=== PATIENT | male | born 1980 | race Caucasian/White ===

== ENCOUNTER → 2020-07-14 | Outpatient (CLI) | payer OTHER ==
[2020-07-14 10:25] LABS: Urine Bacteria NONE SEEN /hpf (None Seen); Urine Blood Negative /uL (Negative); Urine Mucus FEW (None Seen); Urine Specific Gravity 1.019 (1.001-1.035); Urine WBC 1 /hpf (0 - 3)
[2020-07-14 10:39] LABS: Albumin 4.1 g/dL (3.4-5.0); Calcium 9.1 mg/dL (8.5-10.1); Potassium 4.2 mmol/L (3.5-5.1)
[2020-07-14 11:18] LABS: BUN/Creatinine Ratio 20.7; Bilirubin, Total 0.8 mg/dL (0.2-1.0); CRP High Sensitivity 0.11 mg/dL (< 0.3)
[2020-07-14 11:21] LABS: Basophils # (auto) 0 10 ^3/uL (0-0.2); Basophils % (auto) 0.7 % (0.0-2.0); Eosinophils # (auto) 0.2 10 ^3/uL (0-0.8); Eosinophils % (auto) 2.8 % (0.0-7.0); Hematocrit 45.7 % (41.0-53.0); Lymphocytes # (auto) 2.1 10 ^3/uL (0.4-5.4); Lymphocytes % (auto) 33.5 % (10.0-50.0); Mean Corpuscular Hemoglobin 30.4 pg (28.0-32.0); Mean Corpuscular Hgb Conc. 34.9 g/dL (32.0-36.0); Monocytes # (auto) 0.4 10 ^3/uL (0-1.3); Neutrophils # (auto) 3.6 10 ^3/uL (1.6-8.6); Platelet Count (auto) 254 10^3/uL (140-450); Red Blood Cells 5.25 10^6/uL (4.5-5.90); Red Cell Distribution Width 12.7 % (11.8-14.3); White Blood Cell 6.4 10^3/uL (4.4-10.8)
== END | disposition home or self-care (01) ==
LOC: LAB 09:48
PROVIDERS: ATTEND Internal Medicine
DX: M25.511 Pain in right shoulder (principal); L50.9 Urticaria, unspecified; K27.9 Peptic ulcer, site unspecified, unspecified as acute or chronic, without hemorrhage or perforation
CPT/HCPCS: 36415; 80053; 80061; 81001; 83036; 85025; 85652; 86141

== ENCOUNTER 2021-07-27 16:16 | Inpatient (IN) | payer OTHER ==
[~2021-07-27] VITALS: Ht 177.8 cm; Wt 93.0 kg
[2021-07-27 20:30] LABS: Basophils # (auto) 0 10 ^3/uL (0-0.2); Basophils % (auto) 0.1 % (0.0-2.0); Eosinophils # (auto) 0 10 ^3/uL (0-0.8); Eosinophils % (auto) 0.3 % (0.0-7.0); Hematocrit 40.6 % (41.0-53.0); Hemoglobin 13.4 g/dL (13.5-17.5); Lymphocytes # (auto) 1.9 10 ^3/uL (0.4-5.4); Lymphocytes % (auto) 15.5 % (10.0-50.0); Mean Corpuscular Hemoglobin 28.4 pg (28.0-32.0); Monocytes # (auto) 1.3 10 ^3/uL (0-1.3); Monocytes % (auto) 10.1 % (0.0-12.0); Neutrophils # (auto) 9.2 10 ^3/uL (1.6-8.6); Red Blood Cells 4.72 10^6/uL (4.5-5.90); White Blood Cell 12.5 10^3/uL (4.4-10.8)
[2021-07-27 20:44] LABS: Albumin 2.3 g/dL (3.4-5.0); Magnesium 3.1 mg/dL (1.6-2.6); Potassium 3.7 mmol/L (3.5-5.1)
[2021-07-27 20:47] LABS: Urine Bacteria NONE SEEN /hpf (None Seen); Urine Blood TRACE /uL (Negative); Urine Mucus FEW (None Seen); Urine Specific Gravity 1.024 (1.001-1.035); Urine WBC 1 /hpf (0 - 3)
[2021-07-27 20:52] LABS: BUN/Creatinine Ratio 21.9; Bilirubin, Total 0.5 mg/dL (0.2-1.0); CRP High Sensitivity 9.6 mg/dL (< 0.3); Total Protein 7.2 g/dL (6.4-8.2)
[2021-07-27 20:58] LABS: INR 1.12 (0.9-1.15)
[2021-07-27] MEDS ORDERED: AZITHROMYCIN 500MG/ 250ML 250 ML IV ONE (21:15)
[2021-07-27] MEDS ORDERED: DexAMETHasone SOD PHOS 10MG/1ML VIAL INJ IV ONE (21:15)
[2021-07-27] MEDS ORDERED: MORPHINE SULFATE INJECTION 2 MG/ML SYRG IV PRN (21:30)
[2021-07-27] MEDS ORDERED: REMDESIVIR PER PHARMACY 0 ML IV SCH (21:30)
[2021-07-27] MEDS ORDERED: ACETAMINOPHEN 500 MG TAB PO PRN (21:30)
[2021-07-27] MEDS ORDERED: NITROGLYCERIN 0.4 MG SL TAB SL PRN (21:30)
[2021-07-27] MEDS ORDERED: ONDANSETRON HCL 4 MG/2 ML VIAL IV PRN (21:30)
[2021-07-27] MEDS ORDERED: TEMAZEPAM 15 MG CAP PO PRN (21:30)
[2021-07-27] MEDS ORDERED: cefTRIAXone 1GM/50ML D5W 50 ML IV ONE (21:30)
[2021-07-27] MEDS: ASCORBIC ACID 500 MG TAB PO SCH (21:50)
[2021-07-27] MEDS: ENOXAPARIN SOD 40 MG/0.4 ML SYRINGE SC SCH (21:50)
[2021-07-27] MEDS ORDERED: REMDESIVIR 200 MG in NS 210ml LOADING DOSE ADULT IV ONE (22:30)
[2021-07-27 23:30] VITALS: BP 99/61
[2021-07-28 07:18] LABS: Basophils # (auto) 0 10 ^3/uL (0-0.2); Basophils % (auto) 0.1 % (0.0-2.0); Eosinophils # (auto) 0 10 ^3/uL (0-0.8); Hematocrit 42.5 % (41.0-53.0); Hemoglobin 14.4 g/dL (13.5-17.5); Lymphocytes # (auto) 1.2 10 ^3/uL (0.4-5.4); Lymphocytes % (auto) 11.6 % (10.0-50.0); Mean Corpuscular Hemoglobin 29.5 pg (28.0-32.0); Mean Corpuscular Volume 86.7 fL (80.0-100.0); Monocytes # (auto) 0.5 10 ^3/uL (0-1.3); Monocytes % (auto) 5.2 % (0.0-12.0); Neutrophils # (auto) 8.5 10 ^3/uL (1.6-8.6); Neutrophils % (auto) 83.1 % (37.0-80.0); Nucleated Red Blood Cells % 0.1 %; White Blood Cell 10.2 10^3/uL (4.4-10.8)
[2021-07-28 07:38] LABS: Potassium 4.5 mmol/L (3.5-5.1)
[2021-07-28 07:51] LABS: Albumin 2.3 g/dL (3.4-5.0); Bilirubin, Total 0.5 mg/dL (0.2-1.0); Calcium 7.7 mg/dL (8.5-10.1); Total Protein 6.8 g/dL (6.4-8.2)
[2021-07-28] MEDS: cefTRIAXone 1GM/50ML D5W 50 ML IV SCH (10:00)
[2021-07-28] MEDS ORDERED: ASCORBIC ACID 1,000 MG TAB PO SCH (10:00)
[2021-07-28] MEDS ORDERED: ZINC SULFATE 220mg CAP or TAB PO SCH (10:00)
[2021-07-28] MEDS: AZITHROMYCIN 500MG/ 250ML 250 ML IV SCH (11:02)
[2021-07-28] MEDS: PANTOPRAZOLE 40 MG TAB PO SCH (11:02)
[2021-07-28] MEDS: ZINC SULFATE 220mg CAP or TAB PO SCH (11:02)
[2021-07-28] MEDS: DexAMETHasone SOD PHOS 10MG/1ML VIAL INJ IV SCH (11:02)
[2021-07-28] MEDS: ENOXAPARIN SOD 40 MG/0.4 ML SYRINGE SC SCH ×2 (11:03→21:41)
[2021-07-28] MEDS: CHOLECALCIFEROL (VITD3) 2,000 UNIT CAP/TAB PO SCH (11:03)
[2021-07-28] MEDS: ASCORBIC ACID 500 MG TAB PO SCH ×2 (11:03→21:41)
[2021-07-28 13:00] VITALS: BP 116/71
[2021-07-28 13:07] LABS: Urine Bacteria NONE SEEN /hpf (None Seen); Urine Blood Negative /uL (Negative); Urine Mucus FEW (None Seen); Urine Specific Gravity 1.028 (1.001-1.035); Urine WBC 2 /hpf (0 - 3)
[2021-07-28] MEDS: REMDESIVIR 100mg 100 MG in SODIUM CHL 0.9% 230 ML IV SCH (16:17)
[2021-07-28 17:00] VITALS: BP 109/57
[2021-07-28 22:00] VITALS: BP 125/89
[2021-07-28] MEDS: ALBUTEROL SULF HFA 90MCG INH 200DOSE IN PRN (22:28)
[2021-07-29] VITALS (7 sets, daily range): BP systolic 97–107; BP diastolic 49–64
[2021-07-29 08:07] LABS: Potassium 4.1 mmol/L (3.5-5.1)
[2021-07-29 08:14] LABS: Albumin 2.3 g/dL (3.4-5.0); BUN/Creatinine Ratio 31.3; Bilirubin, Total 0.4 mg/dL (0.2-1.0); Calcium 8.2 mg/dL (8.5-10.1); Total Protein 6.7 g/dL (6.4-8.2)
[2021-07-29] MEDS: cefTRIAXone 1GM/50ML D5W 50 ML IV SCH (08:35)
[2021-07-29] MEDS: ENOXAPARIN SOD 40 MG/0.4 ML SYRINGE SC SCH ×2 (10:24→21:54)
[2021-07-29] MEDS: PANTOPRAZOLE 40 MG TAB PO SCH (10:24)
[2021-07-29] MEDS: ASCORBIC ACID 500 MG TAB PO SCH ×2 (10:24→21:54)
[2021-07-29] MEDS: CHOLECALCIFEROL (VITD3) 2,000 UNIT CAP/TAB PO SCH (10:24)
[2021-07-29] MEDS: ZINC SULFATE 220mg CAP or TAB PO SCH (10:24)
[2021-07-29] MEDS: DexAMETHasone SOD PHOS 10MG/1ML VIAL INJ IV SCH (10:25)
[2021-07-29] MEDS: AZITHROMYCIN 500MG/ 250ML 250 ML IV SCH (10:25)
[2021-07-29] MEDS ORDERED: guaiFENesin 200 MG/10 ML UD PO PRN (11:30)
[2021-07-29] MEDS: REMDESIVIR 100mg 100 MG in SODIUM CHL 0.9% 230 ML IV SCH (14:29)
[2021-07-29] MEDS: ALBUTEROL SULF HFA 90MCG INH 200DOSE IN PRN (21:53)
[2021-07-30 05:00] VITALS: BP 106/60
[2021-07-30 07:17] LABS: Albumin 2.2 g/dL (3.4-5.0); Calcium 7.9 mg/dL (8.5-10.1); Magnesium 3.1 mg/dL (1.6-2.6); Potassium 4.3 mmol/L (3.5-5.1)
[2021-07-30 07:28] LABS: BUN/Creatinine Ratio 30.1; Bilirubin, Total 0.4 mg/dL (0.2-1.0); CRP High Sensitivity 2.39 mg/dL (< 0.3); Total Protein 5.9 g/dL (6.4-8.2)
[2021-07-30] MEDS: ALBUTEROL SULF HFA 90MCG INH 200DOSE IN PRN ×2 (08:16→22:16)
[2021-07-30 09:00] VITALS: BP 95/58
[2021-07-30] MEDS: DexAMETHasone SOD PHOS 10MG/1ML VIAL INJ IV SCH (10:29)
[2021-07-30] MEDS: cefTRIAXone 1GM/50ML D5W 50 ML IV SCH (10:29)
[2021-07-30] MEDS: AZITHROMYCIN 500MG/ 250ML 250 ML IV SCH (10:29)
[2021-07-30] MEDS: ZINC SULFATE 220mg CAP or TAB PO SCH (10:30)
[2021-07-30] MEDS: ASCORBIC ACID 500 MG TAB PO SCH ×2 (10:31→22:28)
[2021-07-30] MEDS: PANTOPRAZOLE 40 MG TAB PO SCH (10:31)
[2021-07-30] MEDS: ENOXAPARIN SOD 40 MG/0.4 ML SYRINGE SC SCH ×2 (10:31→22:30)
[2021-07-30 13:00] VITALS: BP 95/52
[2021-07-30] MEDS: REMDESIVIR 100mg 100 MG in SODIUM CHL 0.9% 230 ML IV SCH (15:20)
[2021-07-30 17:00] VITALS: BP 11/57
[2021-07-30 19:57] VITALS: BP 111/57
[2021-07-30 22:00] VITALS: BP 103/60
[2021-07-31 05:00] VITALS: BP 103/60
[2021-07-31 07:06] LABS: Potassium 3.9 mmol/L (3.5-5.1)
[2021-07-31 07:18] LABS: CRP High Sensitivity 1.47 mg/dL (< 0.3)
[2021-07-31] MEDS: ALBUTEROL SULF HFA 90MCG INH 200DOSE IN PRN (08:13)
[2021-07-31] MEDS ORDERED: AZITHROMYCIN 250 MG TAB PO ONE (08:30)
[2021-07-31 09:00] VITALS: BP 101/60
[2021-07-31] MEDS: ZINC SULFATE 220mg CAP or TAB PO SCH (09:00)
[2021-07-31] MEDS: DexAMETHasone SOD PHOS 10MG/1ML VIAL INJ IV SCH (09:00)
[2021-07-31] MEDS: cefTRIAXone 1GM/50ML D5W 50 ML IV SCH (09:00)
[2021-07-31] MEDS: PANTOPRAZOLE 40 MG TAB PO SCH (09:01)
[2021-07-31] MEDS: ASCORBIC ACID 500 MG TAB PO SCH (09:01)
[2021-07-31] MEDS: ENOXAPARIN SOD 40 MG/0.4 ML SYRINGE SC SCH (09:05)
[2021-07-31] MEDS ORDERED: BUDE2SUS3 IN (12:04)
[2021-07-31] MEDS ORDERED: ASCO500T11 PO (12:04)
[2021-07-31] MEDS ORDERED: DEX4T PO (12:04)
[2021-07-31] MEDS ORDERED: ZINC220T6 PO (12:04)
[2021-07-31] MEDS ORDERED: FAMO20TA10 PO (12:04)
[2021-07-31] MEDS ORDERED: DOXY-286 PO (12:04)
[2021-07-31] MEDS ORDERED: ALBUAER3 IN (12:04)
[2021-07-31] MEDS ORDERED: ASPI-378 PO (12:04)
[2021-07-31 13:00] VITALS: BP 106/58
[2021-07-31] MEDS: REMDESIVIR 100mg 100 MG in SODIUM CHL 0.9% 230 ML IV SCH (15:19)
[2021-07-31 17:00] VITALS: BP 113/64
== END 2021-07-31 16:45 | disposition home or self-care (01) | DRG 177 ==
LOC: ER 16:16 → TELE 21:27 → TELE-EAST 07-28 11:59
PROVIDERS: ADMIT Nurse Practitioner; ATTEND Internal Medicine
PROC: XW033E5 Introduction of Remdesivir Anti-infective into Peripheral Vein, Percutaneous Approach, New Technology Group 5 (ICD-10-PCS; principal; 2021-07-27)
DX: U07.1 COVID-19 (principal); J12.82 Pneumonia due to coronavirus disease 2019; J96.01 Acute respiratory failure with hypoxia; R65.10 Systemic inflammatory response syndrome (SIRS) of non-infectious origin without acute organ dysfunction
CPT/HCPCS: 36415; 71045; 80053; 81001; 82306; 82728; 83605; 83615; 83735; 83880; 84132; 84484; 85025; 85379; 85610; 86141; 87040; 87426; 93005; 93970; 94640; 96365; 96366; 96367; 96368; 96372; 96375; 96376; G0378; J0696; J1100

== ENCOUNTER → 2021-08-10 | Outpatient (CLI) | payer OTHER ==
[~2021-08-10] MED LIST: ALBUAER3 IN; ASCO500T11 PO; ASPI-378 PO; BUDE2SUS3 IN; DEX4T PO; DOXY-286 PO; FAMO20TA10 PO; ZINC220T6 PO
[2021-08-10 10:28] LABS: Cholesterol 194 mg/dL (< 200); HDL Cholesterol 54 mg/dL (40-59); LDL Cholesterol 117 mg/dL (< 100); Triglycerides 60 mg/dL (< 150)
== END | disposition home or self-care (01) ==
LOC: LAB 08:01
PROVIDERS: ATTEND Internal Medicine
DX: E78.5 Hyperlipidemia, unspecified (principal)
CPT/HCPCS: 36415; 80061; 83036; 83880